=== PATIENT | female | born 1955 | race Caucasian/White ===

== ENCOUNTER 2019-01-11 20:12 | Outpatient (REF) | payer MEDICARE, BC, SELFPAY ==
[2019-01-11 20:29] LABS: Calculated LDL 145 mg/dL; Cholesterol 217 mg/dL (50-200); HDL Cholesterol 59 mg/dL (40-60); Triglyceride 65 mg/dL (30-150)
== END 2019-01-11 20:32 ==
LOC: NCHCN 20:12
PROVIDERS: PCP Family Medicine; Visit Provider Family Medicine
DX: Z00.00 Encounter for general adult medical examination without abnormal findings (principal); E66.3 Overweight; Z13.220 Encounter for screening for lipoid disorders
CPT/HCPCS: 80061

== ENCOUNTER 2019-12-10 15:50 | Outpatient (REF) | payer MEDICARE, BC, SELFPAY ==
[2019-12-12 23:56] LABS: SARS-CoV-2 RNA Undetected (Undetected); SARS-CoV-2 Specimen Source Nasopharynx
== END 2019-12-10 16:10 ==
LOC: NCHCN 15:50
PROVIDERS: PCP Family Medicine; Visit Provider Family Medicine
DX: Z20.828 Contact with and (suspected) exposure to other viral communicable diseases (principal)
CPT/HCPCS: U0003

== ENCOUNTER 2021-02-20 15:21 | Outpatient (REF) | payer MEDICARE, SELFPAY ==
[2021-02-20 20:47] LABS: HCT 39.5 % (36.0-46.0); HGB 13.3 g/dL (11.2-15.7); MCH 30.7 pg (27.0-33.0); MCHC 33.7 % (32.0-36.0); MCV 91.2 fL (80-95); MPV 11.7 fL (8.0-11.0); Platelet Count 280 10^3/uL (130-400); RBC 4.33 10^6/uL (3.93-5.22); RDW-SD 43.4 fL; WBC 6.72 10^3/uL (4.4-10.8)
[2021-02-20 20:54] LABS: Anion Gap 8.3 mmol/L (3-11); BUN 20 mg/dL (7-18); CO2 27.7 mmol/L (21.0-32.0); CREATININE 0.7 mg/dL (0.55-1.02); Calcium 8.9 mg/dL (8.5-10.1); Calculated LDL 156 mg/dL (<100); Chloride 104 mmol/L (98-107); Cholesterol 241 mg/dL (<200); Glucose 92 mg/dL (74-106); HDL Cholesterol 72 mg/dL (40-60); Sodium 140 mmol/L (136-145); Triglyceride 66 mg/dL (<150)
== END 2021-02-20 15:22 | disposition home or self-care (01) ==
LOC: NCHCN 15:21
PROVIDERS: PCP Family Medicine; Visit Provider Family Medicine
DX: M17.0 Bilateral primary osteoarthritis of knee (principal); Z12.11 Encounter for screening for malignant neoplasm of colon; Z00.8 Encounter for other general examination
CPT/HCPCS: 80048; 80061; 85027

== ENCOUNTER 2023-12-12 14:27 | Outpatient (REF) | payer MEDICARE, SELFPAY ==
[2023-12-12 15:05] LABS: BUN 19 mg/dL (7-18); CREATININE 0.8 mg/dL (0.55-1.02); Calcium 9.5 mg/dL (8.5-10.1); Calculated LDL 151 mg/dL (<100); Chloride 105 mmol/L (98-107); Cholesterol 233 mg/dL (<200); Estimated GFR 79.22 (mL/min/1.73m2); Glucose 103 mg/dL (74-106); HDL Cholesterol 64 mg/dL (40-60); Potassium 4.7 mmol/L (3.5-5.1); Sodium 140 mmol/L (136-145); Triglyceride 90 mg/dL (<150)
== END 2023-12-12 14:28 | disposition home or self-care (01) ==
LOC: NCHCN 14:27
PROVIDERS: PCP Family Medicine; Visit Provider Family Medicine
DX: Z13.1 Encounter for screening for diabetes mellitus (principal)
CPT/HCPCS: 80048; 80061